=== PATIENT | male | born 1955 | race Caucasian/White ===

== ENCOUNTER 2017-04-14 07:41 | Emergency (ER) | payer OTHER ==
[~2017-04-14] VITALS: Ht 177.8 cm; Wt 82.2 kg
[2017-04-14 08:20] LABS: PLATELET COUNT 193 x10^3mcL (130-400); RED CELL DISTRIBUTION WIDTH 12.6 % (11.5-14.5)
[2017-04-14 08:25] LABS: CALCIUM 9.2 mg/dL (8.5-10.1); CARBON DIOXIDE 26.5 mmol/L (21-32); CHLORIDE SERUM 105 mmol/L (98-107); CREATININE SERUM 1.2 mg/dL (0.7-1.3); GFR1 > 60 mL/min; GLUCOSE SERUM 109 mg/dL (74-106); POTASSIUM SERUM 3.9 mmol/L (3.5-5.1); SODIUM SERUM 140 mmol/L (136-145)
[2017-04-14 08:29] LABS: ALBUMIN 3.8 g/dL (3.4-5.0); ALKALINE PHOSPHATASE 75 U/L (46-116); ALT/SGPT 31 U/L (16-63); AST/SGOT 21 U/L (15-37); BILIRUBIN TOTAL 1.1 mg/dL (0.20-1.00)
[2017-04-14 08:30] LABS: BASOPHIL % 4.2 % (0-2)
[2017-04-14 09:48] VITALS: BP 139/53
== END 2017-04-14 09:48 | disposition home or self-care (01) ==
LOC: ED 07:41
PROVIDERS: Emergency Medicine
DX: N20.0 Calculus of kidney (principal)
CPT/HCPCS: J1885; J7030

== ENCOUNTER 2017-04-18 09:57 | Emergency (ER) | payer OTHER ==
[2017-04-18 13:13] LABS: BASOPHIL % 0.4 % (0-2); PLATELET COUNT 154 x10^3mcL (130-400); RED CELL DISTRIBUTION WIDTH 13.6 % (11.5-14.5)
[2017-04-18 13:16] LABS: microscopic required? YES; urine erythrocyte 1+ (NEGATIVE)
[2017-04-18 13:18] LABS: CALCIUM 8.9 mg/dL (8.5-10.1); CARBON DIOXIDE 30.9 mmol/L (21-32); CREATININE SERUM 1.4 mg/dL (0.7-1.3); POTASSIUM SERUM 4.3 mmol/L (3.5-5.1)
[2017-04-18 13:23] LABS: ALBUMIN 3.6 g/dL (3.4-5.0); BILIRUBIN TOTAL 1.8 mg/dL (0.20-1.00); TOTAL PROTEIN, SERUM 7.1 g/dL (6.4-8.2)
[2017-04-18 14:34] VITALS: BP 127/90
== END 2017-04-18 14:34 | disposition home or self-care (01) ==
LOC: ED 09:57
PROVIDERS: Specialist
DX: N20.0 Calculus of kidney (principal); K59.00 Constipation, unspecified; Z76.0 Encounter for issue of repeat prescription; Z86.79 Personal history of other diseases of the circulatory system; Z87.438 Personal history of other diseases of male genital organs
CPT/HCPCS: 83880; J1885; J7030

== ENCOUNTER 2018-01-02 22:22 | Emergency (ER) | payer OTHER ==
[~2018-01-02] VITALS: Ht 177.8 cm; Wt 83.0 kg
[2018-01-02 22:39] VITALS: Ht 177.8 cm; Wt 83.0 kg
[2018-01-02 23:29] VITALS: BP 149/90
== END 2018-01-02 23:25 | disposition home or self-care (01) ==
LOC: ED 22:22
DX: K64.4 Residual hemorrhoidal skin tags (principal)

== ENCOUNTER 2020-12-13 20:29 | Emergency (ER) | payer OTHER ==
[~2020-12-13] VITALS: Ht 180.3 cm; Wt 71.7 kg
[2020-12-13 20:50] VITALS: Ht 180.3 cm; Wt 71.7 kg
[2020-12-13] MEDS ORDERED: IBU600 M2 PO (22:39)
[2020-12-13] MEDS ORDERED: ACETAMINOPHEN-H1 TA1 PO (22:39)
[2020-12-13 22:55] VITALS: BP 119/70
== END 2020-12-13 22:55 | disposition home or self-care (01) ==
LOC: ED 20:29
DX: S82.091A Other fracture of right patella, initial encounter for closed fracture (principal); Z88.8 Allergy status to other drugs, medicaments and biological substances; Z87.442 Personal history of urinary calculi; V49.49XA Driver injured in collision with other motor vehicles in traffic accident, initial encounter; Y93.I9 Activity, other involving external motion; Y92.488 Other paved roadways as the place of occurrence of the external cause; Y99.8 Other external cause status